=== PATIENT | female | born 1955 | race African-American/Black ===

== ENCOUNTER → 2016-10-16 | Outpatient (CLI) | payer MEDICARE, OTHER ==
[~2016-10-16] MED LIST: ALB5IS NEB; ALBUAER3 IN; ASCO100076 PO; ASPI81CH49; CALC-30; CALC-332 PO; CETI10TA93 PO; ESOM20CA PO; FLUT0.0531; HYDR-3682 OR; IPRA0.035; LIDO5DIS40 BC; MONT10TA23 OR; PRENTAB40 OR; PYRI100T51 PO; VENL150C PO; ZOLP10TA6 PO; [UNRECOGNIZED DRUG - OTHER]; [UNRECOGNIZED DRUG - OTHER] PO
[2016-10-16 09:47] LABS: Basophils # (auto) 0 uL; Basophils % (auto) 0.4 % (0.0-2.0); Eosinophils # (auto) 0.1 uL; Eosinophils % (auto) 1.5 % (0.0-7.0); Hematocrit 41.7 % (36.0-46.0); Hemoglobin 13.1 g/dL (12.2-16.2); Lymphocytes # (auto) 2.3 uL; Mean Corpuscular Hemoglobin 27.4 pg (28.0-32.0); Mean Corpuscular Hgb Conc. 31.3 g/dL (32.0-36.0); Mean Corpuscular Volume 87.3 fL (80.0-100.0); Mean Platelet Volume 10.5 fL (7.4-10.4); Monocytes # (auto) 0.3 uL; Monocytes % (auto) 3.4 % (0.0-12.0); Neutrophils % (auto) 71.7 % (37.0-80.0); Platelet Count (auto) 327 10^3/uL (140-450); Red Cell Distribution Width 16.9 % (11.6-16.0); White Blood Cell 9.8 10^3/uL (4.4-10.8)
[2016-10-16 10:02] LABS: Albumin 3.9 g/dL (3.4-5.0); BUN/Creatinine Ratio 14.3; Bilirubin, Total 0.4 mg/dL (0.2-1.0); Calcium 9.1 mg/dL (8.5-10.1); Potassium 3.8 mmol/L (3.5-5.1); Total Protein 7.5 g/dL (6.4-8.2)
== END | disposition home or self-care (01) ==
LOC: LAB 08:12
DX: I10 Essential (primary) hypertension (principal); M25.50 Pain in unspecified joint; D64.9 Anemia, unspecified; M06.9 Rheumatoid arthritis, unspecified; Z79.899 Other long term (current) drug therapy
CPT/HCPCS: 36415; 80053; 85025; 85652; 86141

== ENCOUNTER → 2017-02-12 | Outpatient (CLI) | payer MEDICARE, OTHER ==
[2017-02-12 12:09] LABS: Basophils # (auto) 0 uL; Basophils % (auto) 0.5 % (0.0-2.0); Eosinophils # (auto) 0.1 uL; Eosinophils % (auto) 0.8 % (0.0-7.0); Hematocrit 43.9 % (36.0-46.0); Hemoglobin 14.1 g/dL (12.2-16.2); Lymphocytes # (auto) 2.1 uL; Lymphocytes % (auto) 30.3 % (10.0-50.0); Mean Corpuscular Hemoglobin 27.9 pg (28.0-32.0); Mean Corpuscular Hgb Conc. 32.1 g/dL (32.0-36.0); Mean Corpuscular Volume 86.8 fL (80.0-100.0); Mean Platelet Volume 10.9 fL (7.4-10.4); Monocytes # (auto) 0.4 uL; Monocytes % (auto) 5.4 % (0.0-12.0); Neutrophils # (auto) 4.4 uL; Platelet Count (auto) 325 10^3/uL (140-450); Red Cell Distribution Width 15.9 % (11.6-16.0); White Blood Cell 6.9 10^3/uL (4.4-10.8)
[2017-02-12 12:42] LABS: BUN/Creatinine Ratio 17.4; Bilirubin, Total 0.2 mg/dL (0.2-1.0); Potassium 3.1 mmol/L (3.5-5.1); Total Protein 7.6 g/dL (6.4-8.2)
== END | disposition home or self-care (01) ==
LOC: LAB 10:34
DX: I10 Essential (primary) hypertension (principal); M06.9 Rheumatoid arthritis, unspecified; M25.50 Pain in unspecified joint; D64.9 Anemia, unspecified; Z79.899 Other long term (current) drug therapy
CPT/HCPCS: 36415; 80053; 80061; 82306; 82607; 83036; 83540; 85025; 85652; 86141

== ENCOUNTER 2017-06-23 13:07 | Observation (INO) | payer MEDICARE, OTHER ==
[~2017-06-23] VITALS: Ht 157.5 cm; Wt 61.2 kg
[2017-06-23 14:30] LABS: Urine RBC None Seen /hpf (0 - 4)
[2017-06-23] MEDS ORDERED: ONDANSETRON HCL 4 MG/2 ML VIAL IV ONE ×3 (14:30→19:30)
[2017-06-23] MEDS ORDERED: MORPHINE SULF INJ 2 MG/ML SYRINGE 1ML IV ONE ×3 (14:30→19:30)
[2017-06-23] MEDS ORDERED: SODIUM CHLORIDE 0.9% 1,000 ML IVB ONE (14:35)
[2017-06-23] MEDS ORDERED: SODIUM CHLORIDE 0.9% 1,000 ML IV ONE (14:45)
[2017-06-23 14:47] LABS: Urine Bilirubin Negative (Negative); Urine Blood Negative /uL (Negative); Urine Color Yellow (Yellow); Urine Glucose Normal (Normal); Urine Ketone Negative (Negative); Urine Mucus FEW (None Seen); Urine Nitrite Negative (Negative); Urine Squamous Epithelial Cell MOD /hpf (<5); Urine Urobilinogen Normal (Negative); Urine pH 8.5 (5.0-8.0)
[2017-06-23 14:51] LABS: Basophils # (auto) 0 uL; Basophils % (auto) 0.2 % (0.0-2.0); CONDITION Y; Eosinophils # (auto) 0.1 uL; Eosinophils % (auto) 0.6 % (0.0-7.0); Hematocrit 38.5 % (36.0-46.0); Hemoglobin 12.6 g/dL (12.2-16.2); Lymphocytes # (auto) 1.4 uL; Lymphocytes % (auto) 15.5 % (10.0-50.0); Mean Corpuscular Hemoglobin 28.8 pg (28.0-32.0); Mean Corpuscular Hgb Conc. 32.7 g/dL (32.0-36.0); Mean Platelet Volume 9.2 fL (6.9-10.8); Monocytes # (auto) 0.4 uL; Monocytes % (auto) 4.7 % (0.0-12.0); Platelet Count (auto) 422 10^3/uL (140-450); Red Cell Distribution Width 15.5 % (11.8-14.3); White Blood Cell 8.9 10^3/uL (4.4-10.8)
[2017-06-23 15:30] LABS: Albumin 3.1 g/dL (3.4-5.0); Amylase 42 U/L (25-115); Anion Gap 9 (5-15); Aspartate Aminotransferase 28 U/L (15-37); BUN/Creatinine Ratio 9.2; Blood Urea Nitrogen 9 mg/dL (7-18); Calcium 8.2 mg/dL (8.5-10.1); Carbon Dioxide 27 mmol/L (21-32); Chloride 108 mmol/L (98-107); GFR African American 74 mL/min; GFR Non-African American 62 mL/min; Glucose 138 mg/dL (74-106); Magnesium 2.7 mg/dL (1.6-2.6); Potassium 4.2 mmol/L (3.5-5.1); Sodium 144 mmol/L (136-145)
[2017-06-23 15:32] LABS: Alkaline Phosphatase 120 U/L (45-117); Bilirubin, Total 0.2 mg/dL (0.2-1.0); Total Protein 6.6 g/dL (6.4-8.2)
[2017-06-23] MEDS ORDERED: PIPERACILLIN-TAZOB 3.375GM 100 ML IV ONE (17:15)
[2017-06-23 22:43] VITALS: BP 104/52
== END 2017-06-23 23:10 | disposition home or self-care (01) | DRG 948 ==
LOC: EDBD 13:07 → ER 13:15 → OVERFLOW 14:36 → ER 23:10
PROVIDERS: ADMIT Family Medicine; ATTEND Family Medicine
DX: R18.8 Other ascites (principal); I31.3 Pericardial effusion (noninflammatory); K76.89 Other specified diseases of liver; R11.2 Nausea with vomiting, unspecified; Z82.3 Family history of stroke; Z82.49 Family history of ischemic heart disease and other diseases of the circulatory system; Z90.13 Acquired absence of bilateral breasts and nipples; Z85.3 Personal history of malignant neoplasm of breast; Z96.653 Presence of artificial knee joint, bilateral; Z98.84 Bariatric surgery status; Z90.710 Acquired absence of both cervix and uterus
CPT/HCPCS: 36415; 71010; 74176; 80053; 81001; 82150; 83690; 83735; 84484; 85025; 93005; 96361; 96365; 96366; 96375; 96376; 99285; G0378; J2270; J2405; J2543; J7030

== ENCOUNTER → 2017-10-16 | Outpatient (CLI) | payer MEDICARE, OTHER ==
[~2017-10-16] MED LIST changes: -LIDO5DIS40 BC; +LIDO5DIS7 BC
[2017-10-16 10:01] LABS: Lymphocytes # (auto) 2.1 uL; Monocytes # (auto) 0.3 uL
[2017-10-16 10:04] LABS: Basophils # (auto) 0 uL; Basophils % (auto) 0.4 % (0.0-2.0); Eosinophils # (auto) 0.2 uL; Lymphocytes % (auto) 33.7 % (10.0-50.0); Mean Corpuscular Hemoglobin 25.4 pg (28.0-32.0); Mean Corpuscular Hgb Conc. 31.5 g/dL (32.0-36.0); Mean Corpuscular Volume 80.4 fL (80.0-100.0); Monocytes % (auto) 5.1 % (0.0-12.0); Neutrophils # (auto) 3.5 uL; Neutrophils % (auto) 56.8 % (37.0-80.0); Platelet Count (auto) 324 10^3/uL (140-450); Red Blood Cells 4.72 10^6/uL (4.0-5.20); White Blood Cell 6.2 10^3/uL (4.4-10.8)
[2017-10-16 10:37] LABS: Alanine Aminotransferase 48 U/L (13-56); Albumin 3.9 g/dL (3.4-5.0); Alkaline Phosphatase 146 U/L (45-117); Anion Gap 8 (5-15); Aspartate Aminotransferase 32 U/L (15-37); BUN/Creatinine Ratio 21.5; Bilirubin, Total < 0.1 mg/dL (0.2-1.0); Blood Urea Nitrogen 17 mg/dL (7-18); CRP High Sensitivity 0.13 mg/dL (< 0.3); Calcium 8.8 mg/dL (8.5-10.1); Carbon Dioxide 23 mmol/L (21-32); Chloride 110 mmol/L (98-107); GFR African American 95 mL/min; GFR Non-African American 79 mL/min; Glucose 76 mg/dL (74-106); Potassium 3.7 mmol/L (3.5-5.1); Sodium 141 mmol/L (136-145); Total Protein 8.2 g/dL (6.4-8.2)
== END | disposition home or self-care (01) ==
LOC: LAB 08:28
DX: I10 Essential (primary) hypertension (principal); M06.9 Rheumatoid arthritis, unspecified; D64.9 Anemia, unspecified; I70.0 Atherosclerosis of aorta; E78.00 Pure hypercholesterolemia, unspecified; Z79.899 Other long term (current) drug therapy
CPT/HCPCS: 36415; 80053; 85025; 85652; 86141

== ENCOUNTER → 2018-04-05 | Outpatient (CLI) | payer MEDICARE, OTHER ==
[2018-04-05 11:05] LABS: Albumin 3.6 g/dL (3.4-5.0); BUN/Creatinine Ratio 14.9; Bilirubin, Total 0.3 mg/dL (0.2-1.0); CRP High Sensitivity 0.05 mg/dL (< 0.3); Potassium 4.2 mmol/L (3.5-5.1); Total Protein 7.5 g/dL (6.4-8.2)
[2018-04-08 12:03] LABS: Basophils # (auto) 0 uL; Eosinophils # (auto) 0.3 uL; Neutrophils # (auto) 3.1 uL
[2018-04-08 12:06] LABS: Basophils % (auto) 0.5 % (0.0-2.0); Eosinophils % (auto) 5.2 % (0.0-7.0); Hematocrit 35.1 % (36.0-46.0); Lymphocytes % (auto) 34.3 % (10.0-50.0); Mean Corpuscular Hemoglobin 23.5 pg (28.0-32.0); Mean Corpuscular Hgb Conc. 31.3 g/dL (32.0-36.0); Mean Corpuscular Volume 75.2 fL (80.0-100.0); Monocytes # (auto) 0.4 uL; Monocytes % (auto) 6.2 % (0.0-12.0); Neutrophils % (auto) 53.8 % (37.0-80.0); Nucleated Red Blood Cells % 0.2 %; Platelet Count (auto) 302 10^3/uL (140-450); Red Blood Cells 4.68 10^6/uL (4.0-5.20); White Blood Cell 5.8 10^3/uL (4.4-10.8)
[2018-04-08 12:28] LABS: Red Cell Distribution Width 25.3 % (11.8-14.3)
== END | disposition home or self-care (01) ==
LOC: LAB 10:23
PROVIDERS: ATTEND Internal Medicine Rheumatology
DX: M06.9 Rheumatoid arthritis, unspecified (principal); I10 Essential (primary) hypertension; E78.00 Pure hypercholesterolemia, unspecified; Z79.899 Other long term (current) drug therapy
CPT/HCPCS: 36415; 80053; 85025; 85652; 86141

== ENCOUNTER 2021-08-29 02:58 | Emergency (ER) | payer MEDICARE, OTHER ==
[~2021-08-29] VITALS: Ht 167.6 cm; Wt 81.6 kg
[~2021-08-29 02:58] MED LIST changes: +LIDO5DIS36 BC; -LIDO5DIS7 BC; -VENL150C PO; +VENL150C3 PO
[2021-08-29 04:02] LABS: Eosinophils # (auto) 0.4 10 ^3/uL (0-0.8); Hemoglobin 11.8 g/dL (12.2-16.2); Mean Corpuscular Hemoglobin 23.4 pg (28.0-32.0); Mean Corpuscular Hgb Conc. 30.5 g/dL (32.0-36.0); Monocytes # (auto) 0.5 10 ^3/uL (0-1.3); Nucleated Red Blood Cells % 0.1 %; White Blood Cell 5.6 10^3/uL (4.4-10.8)
[2021-08-29 04:03] LABS: Basophils # (auto) 0.1 10 ^3/uL (0-0.2); Eosinophils % (auto) 7.4 % (0.0-7.0); Hematocrit 38.6 % (36.0-46.0); Lymphocytes # (auto) 2.3 10 ^3/uL (0.4-5.4); Lymphocytes % (auto) 41.1 % (10.0-50.0); Mean Corpuscular Volume 76.8 fL (80.0-100.0); Monocytes % (auto) 8.2 % (0.0-12.0); Neutrophils # (auto) 2.4 10 ^3/uL (1.6-8.6); Neutrophils % (auto) 42.3 % (37.0-80.0); Red Blood Cells 5.03 10^6/uL (4.0-5.20)
[2021-08-29 04:13] LABS: Red Cell Distribution Width 20.9 % (11.8-14.3)
[2021-08-29 04:22] LABS: Albumin 3.5 g/dL (3.4-5.0); BUN/Creatinine Ratio 13.2; Calcium 8.5 mg/dL (8.5-10.1); Potassium 4.1 mmol/L (3.5-5.1)
[2021-08-29 04:23] LABS: Acetaminophen < 2.0 ug/mL (10-30); Salicylate < 1.7 mg/dL (2.8-20.0)
[2021-08-29 04:24] LABS: Bilirubin, Total 0.2 mg/dL (0.2-1.0); Total Protein 7.5 g/dL (6.4-8.2)
[2021-08-30 07:48] VITALS: BP 144/93
== END 2021-08-30 09:51 | disposition left against medical advice (07) ==
LOC: EDBD 02:58 → ER 02:58
DX: T42.4X2A Poisoning by benzodiazepines, intentional self-harm, initial encounter (principal); F41.9 Anxiety disorder, unspecified; R45.851 Suicidal ideations; F32.9 Major depressive disorder, single episode, unspecified; R94.31 Abnormal electrocardiogram [ECG] [EKG]; Z20.822 Contact with and (suspected) exposure to COVID-19; Z90.49 Acquired absence of other specified parts of digestive tract; Z90.710 Acquired absence of both cervix and uterus; Y92.9 Unspecified place or not applicable
CPT/HCPCS: 36415; 80053; 80320; 80329; 83735; 85025; 87426; 93005

== ENCOUNTER 2023-12-12 09:30 | Day surgery (SDC) | payer MEDICARE, OTHER ==
[2023-12-05 14:45] LABS: Hemoglobin 9.7 g/dL (12.2-16.2); Mean Corpuscular Hemoglobin 21.9 pg (28.0-32.0); Nucleated Red Blood Cells % 0.2 %
[2023-12-05 14:47] LABS: Basophils # (auto) 0.1 10 ^3/uL (0-0.2); Basophils % (auto) 1.5 % (0.0-2.0); Eosinophils # (auto) 0.2 10 ^3/uL (0-0.8); Eosinophils % (auto) 3.5 % (0.0-7.0); Hematocrit 32.1 % (36.0-46.0); Lymphocytes # (auto) 2.3 10 ^3/uL (0.4-5.4); Lymphocytes % (auto) 42.6 % (10.0-50.0); Mean Corpuscular Hgb Conc. 30.2 g/dL (32.0-36.0); Mean Corpuscular Volume 72.3 fL (80.0-100.0); Monocytes # (auto) 0.2 10 ^3/uL (0-1.3); Monocytes % (auto) 3.5 % (0.0-12.0); Neutrophils # (auto) 2.6 10 ^3/uL (1.6-8.6); Neutrophils % (auto) 48.9 % (37.0-80.0); Red Blood Cells 4.44 10^6/uL (4.0-5.20); White Blood Cell 5.4 10^3/uL (4.4-10.8)
[2023-12-05 14:49] LABS: INR 1.09 (0.9-1.15); Partial Thromboplastin Time 26.2 SEC (24.5-34.5); Prothrombin Time 11.4 sec (9.3-11.8)
[2023-12-05 14:53] LABS: Red Cell Distribution Width 23.7 % (11.8-14.3)
[2023-12-05 15:35] LABS: Alanine Aminotransferase 34 U/L (7-40); Albumin 4.5 g/dL (3.2-4.8); Alkaline Phosphatase 111 U/L (46-116); Anion Gap 8 (5-15); Aspartate Aminotransferase 31 U/L (13-40); BUN/Creatinine Ratio 9.3 (10.0-20.0); Blood Urea Nitrogen 8 mg/dL (9-23); Calcium 9.5 mg/dL (8.5-10.1); Carbon Dioxide 28 mmol/L (20-30); Chloride 107 mmol/L (98-107); Glucose 78 mg/dL (74-106); Potassium 3.5 mmol/L (3.5-5.1); Sodium 143 mmol/L (136-145)
[2023-12-05 15:36] LABS: Bilirubin, Total 0.3 mg/dL (0.2-1.0); Total Protein 7.5 g/dL (5.7-8.2)
[~2023-12-12] VITALS: Ht 162.6 cm; Wt 49.0 kg
[~2023-12-12 09:30] MED LIST changes: -ALB5IS NEB; -ALBUAER3 IN; -ASCO100076 PO; -ASPI81CH49; +BUSP1TAB57 PO; -CALC-30; -CALC-332 PO; +CETI10TA2 PO; -CETI10TA93 PO; -ESOM20CA PO; -FLUT0.0531; +GABA-1250 PO; -HYDR-3682 OR; +HYDR-4795 PO; +HYDR-5028 PO; -IPRA0.035; -LIDO5DIS36 BC; +LORA-655 PO; +PANT40T PO; -PRENTAB40 OR; -PYRI100T51 PO; +SUCR1TAB22 OR; +TEMA30CA PO; +TOPI1CAP22 OR; -VENL150C3 PO; -ZOLP10TA6 PO; -[UNRECOGNIZED DRUG - OTHER]; -[UNRECOGNIZED DRUG - OTHER] PO
[2023-12-12] MEDS ORDERED: SODIUM CHLORIDE LOCK 0 ML ONE (09:54)
[2023-12-12] MEDS ORDERED: LIDOCAINE VISCOUS 2% 15ML UD ONE (09:54)
[2023-12-12] MEDS ORDERED: MIDAZOLAM HCL 5 MG/ML-1ML VIAL ONE (09:54)
[2023-12-12] MEDS ORDERED: diphenhdrAMINE HCL 50 MG/1 ML VL ONE (09:55)
[2023-12-12] MEDS ORDERED: fentaNYL CITRATE 100 MCG/2 ML VL ONE (09:55)
[2023-12-12] MEDS ORDERED: PROPOFOL 10 MG/ML 20 ML IV ONE (12:15)
[2023-12-12 12:36] VITALS: TEMP 97.8; O2SAT 100
[2023-12-12] MEDS ORDERED: ONDANSETRON HCL 4 MG/2 ML VIAL IV PRN (12:45)
[2023-12-12 13:00] VITALS: BP 135/79; PULSE 60; RESP 12; O2SAT 100
== END 2023-12-12 13:15 | disposition home or self-care (01) ==
LOC: GI 09:30
PROVIDERS: ATTEND Internal Medicine Gastroenterology
DX: R11.2 Nausea with vomiting, unspecified (principal); K91.89 Other postprocedural complications and disorders of digestive system; K44.9 Diaphragmatic hernia without obstruction or gangrene; K29.50 Unspecified chronic gastritis without bleeding; K31.89 Other diseases of stomach and duodenum; G43.909 Migraine, unspecified, not intractable, without status migrainosus; M19.90 Unspecified osteoarthritis, unspecified site; Z98.84 Bariatric surgery status; Z93.4 Other artificial openings of gastrointestinal tract status; Z90.710 Acquired absence of both cervix and uterus; Z90.13 Acquired absence of bilateral breasts and nipples; Z88.5 Allergy status to narcotic agent; Z88.8 Allergy status to other drugs, medicaments and biological substances; Z79.899 Other long term (current) drug therapy; Z98.890 Other specified postprocedural states
CPT/HCPCS: 36415; 43239; 80053; 85025; 85610; 85730; 88305; 88312; 88342; J2704; J7030; J2250

== ENCOUNTER 2024-05-06 02:57 | Inpatient (IN) | payer MEDICARE, OTHER ==
[2024-05-06] VITALS (7 sets, daily range): BP systolic 100–138; BP diastolic 64–76; PULSE 58–82; RESP 14–20; TEMP 98.1–98.8; O2SAT 93–100
[~2024-05-06] VITALS: Ht 162.6 cm; Wt 57.0 kg
[~2024-05-06 02:57] MED LIST changes: +METH2.5T PO; -MONT10TA23 OR; +MONT10TA23 PO; -SUCR1TAB22 OR; +SUCR1TAB31 OR; -TOPI1CAP22 OR; +TOPI1CAP22 PO
[2024-05-06 04:26] LABS: Hematocrit 29.3 % (36.0-46.0); Hemoglobin 8.3 g/dL (12.2-16.2); Mean Corpuscular Hemoglobin 21.1 pg (28.0-32.0); Mean Corpuscular Hgb Conc. 28.4 g/dL (32.0-36.0)
[2024-05-06 04:30] LABS: Mean Corpuscular Volume 74.4 fL (80.0-100.0); Red Blood Cells 3.94 10^6/uL (4.0-5.20); White Blood Cell 6.2 10^3/uL (4.4-10.8)
[2024-05-06 04:31] LABS: Red Cell Distribution Width 25.4 % (11.8-14.3)
[2024-05-06 04:32] LABS: Basophils % (manual) 0 (0.0-2.0); Blast Cells 0; Eosinophils % (manual) 0 (0-7); Metamyelocytes % 0; Myelocytes % 0; Promyelocytes % 0; Reactive Lymphocytes 0
[2024-05-06 04:41] LABS: Alanine Aminotransferase 24 U/L (7-40); Albumin 4.4 g/dL (3.2-4.8); Alkaline Phosphatase 121 U/L (46-116); Anion Gap 11 (5-15); Aspartate Aminotransferase 20 U/L (13-40); BUN/Creatinine Ratio 8.1 (10.0-20.0); Bilirubin, Total 0.3 mg/dL (0.2-1.0); Blood Urea Nitrogen 6 mg/dL (9-23); Calcium 9.3 mg/dL (8.7-10.4); Carbon Dioxide 17 mmol/L (20-30); Chloride 112 mmol/L (98-107); Glucose 139 mg/dL (74-106); Magnesium 2.2 mg/dL (1.6-2.6); Potassium 3.2 mmol/L (3.5-5.1); Sodium 140 mmol/L (136-145)
[2024-05-06 04:42] LABS: Total Protein 7.4 g/dL (5.7-8.2)
[2024-05-06] MEDS: KETOROLAC TROMETH 30 MG/ML 1ML VIAL IV ONE (05:14)
[2024-05-06] MEDS: SODIUM CHLORIDE 0.9% 1,000 ML IV ONE (05:14)
[2024-05-06] MEDS: OMNIPAQUE 12mg/ml 500ml ORAL SOLUTION PO ONE (05:35)
[2024-05-06] MEDS: ONDANSETRON HCL 4 MG/2 ML VIAL IV ONE (06:12)
[2024-05-06] MEDS: MORPHINE SULFATE 4 MG/ML SYR/VIAL IV ONE (06:13)
[2024-05-06] MEDS: POTASSIUM EFFERVESENT TAB 25 MEQ PO ONE (06:20)
[2024-05-06 06:25] LABS: Band Neutrophils % (manual) 1; Monocytes % (manual) 2 (0-12)
[2024-05-06 06:26] LABS: Anisocytosis Moderate; Hypochromia Moderate; Lymphocytes % (manual) 25 (10.0-50.0); Platelet Estimate Adequate
[2024-05-06 06:27] LABS: Ovalocytes FEW; Target Cell FEW
[2024-05-06] MEDS: diphenhdrAMINE HCL 50 MG/1 ML VL IV ONE (06:27)
[2024-05-06] MEDS: LORazepam 2MG/ML-1ML VIAL IV ONE (07:59)
[2024-05-06 10:48] LABS: Urine Bacteria None Seen /hpf (None Seen)
[2024-05-06] MEDS: IOHEXOL 350 MG/ML 100ML IJ ONE (10:49)
[2024-05-06 11:15] LABS: Urine Amorphous Crystal FEW /hpf (None Seen); Urine Blood Negative /uL (Negative); Urine Clarity Turbid (Clear); Urine Color Light-Yellow (Yellow); Urine Mucus FEW (None Seen); Urine Protein, UAD TRACE (Negative); Urine Specific Gravity 1.018 (1.001-1.035); Urine Urobilinogen Normal (Negative); Urine WBC 3 /hpf (0 - 5)
[2024-05-06] MEDS ORDERED: BUPR450T4 PO (12:10)
[2024-05-06] MEDS: HYDROmorphone HCL 2 MG/ML VL/or syr IV PRN ×2 (13:36→17:18)
[2024-05-06] MEDS: SODIUM CHLOR 0.9% PF (SALINE LOCK) 10ML VIAL/SYR IV SCH (14:38)
[2024-05-06] MEDS ORDERED: CYCL-839 PO (16:41)
[2024-05-06] MEDS ORDERED: ONDA-155 PO (16:41)
[2024-05-06] MEDS ORDERED: LIDO5PAD12 EX (16:41)
[2024-05-06] MEDS ORDERED: DULO60CA41 PO (16:41)
[2024-05-07] VITALS (8 sets, daily range): BP systolic 112–125; BP diastolic 61–84; PULSE 52–77; RESP 16–20; TEMP 97.9–98.6; O2SAT 95–100
[2024-05-07] MEDS: POTASSIUM CHL 20MEQ/100ML 100 ML IV SCH (08:30)
[2024-05-07] MEDS: GASTROGRAFIN 120 ML SOL ONE (09:03)
[2024-05-07 15:25] LABS: Chloride 110 mmol/L (98-107); Potassium 3.1 mmol/L (3.5-5.1); Sodium 143 mmol/L (136-145)
[2024-05-07 15:26] LABS: Anion Gap 12 (5-15); Calcium 9.2 mg/dL (8.7-10.4); Carbon Dioxide 21 mmol/L (20-30); Hemoglobin 8.2 g/dL (12.2-16.2); White Blood Cell 4.9 10^3/uL (4.4-10.8)
[2024-05-07 15:28] LABS: Hematocrit 27.6 % (36.0-46.0); Mean Corpuscular Hgb Conc. 29.6 g/dL (32.0-36.0); Mean Corpuscular Volume 70.9 fL (80.0-100.0); Red Cell Distribution Width 24.3 % (11.8-14.3)
[2024-05-07 15:31] LABS: BUN/Creatinine Ratio 10.1 (10.0-20.0); Band Neutrophils % (manual) 0; Blood Urea Nitrogen 7 mg/dL (9-23); Glucose 77 mg/dL (74-106)
[2024-05-07 15:32] LABS: Basophils % (manual) 0 (0.0-2.0); Blast Cells 0; Magnesium 2.1 mg/dL (1.6-2.6); Metamyelocytes % 0; Myelocytes % 0; Promyelocytes % 0; Reactive Lymphocytes 0
[2024-05-07 16:35] LABS: Anisocytosis Moderate; Eosinophils % (manual) 2 (0-7); Hypochromia Moderate; Lymphocytes % (manual) 37 (10.0-50.0); Monocytes % (manual) 4 (0-12); Platelet Estimate Adequate; Target Cell FEW
[2024-05-07] MEDS: POTASSIUM CHL 20MEQ/100ML 100 ML IV ONE (17:27)
[2024-05-07] MEDS: SOD CHL 0.9%/ KCL 20MEQ 1,000 ML IV SCH (17:27)
[2024-05-07] MEDS: ONDANSETRON HCL 4 MG/2 ML VIAL IV PRN (22:00)
[2024-05-08 01:00] VITALS: BP 131/74; PULSE 63; RESP 18; TEMP 98.2; O2SAT 99
[2024-05-08 05:00] VITALS: BP 114/72; PULSE 80; RESP 18; TEMP 97.8; O2SAT 95
[2024-05-08 07:06] LABS: Basophils # (auto) 0 10 ^3/uL (0-0.2)
[2024-05-08 07:10] LABS: Basophils % (auto) 0.9 % (0.0-2.0); Eosinophils # (auto) 0.1 10 ^3/uL (0-0.8); Hematocrit 29.1 % (36.0-46.0); Hemoglobin 8.1 g/dL (12.2-16.2); Lymphocytes # (auto) 1.8 10 ^3/uL (0.4-5.4); Lymphocytes % (auto) 40.6 % (10.0-50.0); Mean Corpuscular Hemoglobin 20.8 pg (28.0-32.0); Mean Corpuscular Hgb Conc. 27.8 g/dL (32.0-36.0); Mean Corpuscular Volume 74.8 fL (80.0-100.0); Monocytes # (auto) 0.5 10 ^3/uL (0-1.3); Monocytes % (auto) 12.3 % (0.0-12.0); Neutrophils # (auto) 1.9 10 ^3/uL (1.6-8.6); Neutrophils % (auto) 44.2 % (37.0-80.0); Red Blood Cells 3.89 10^6/uL (4.0-5.20); White Blood Cell 4.4 10^3/uL (4.4-10.8)
[2024-05-08 07:11] LABS: Red Cell Distribution Width 24.2 % (11.8-14.3)
[2024-05-08 07:18] LABS: Alanine Aminotransferase 23 U/L (7-40); Albumin 3.8 g/dL (3.2-4.8); Alkaline Phosphatase 109 U/L (46-116); Anion Gap 8 (5-15); Aspartate Aminotransferase 22 U/L (13-40); BUN/Creatinine Ratio 9.1 (10.0-20.0); Bilirubin, Total 0.2 mg/dL (0.2-1.0); Blood Urea Nitrogen 6 mg/dL (9-23); Calcium 8.7 mg/dL (8.7-10.4); Carbon Dioxide 20 mmol/L (20-30); Chloride 114 mmol/L (98-107); Glucose 71 mg/dL (74-106); Potassium 3.9 mmol/L (3.5-5.1); Sodium 142 mmol/L (136-145); Total Protein 6.2 g/dL (5.7-8.2)
[2024-05-08 08:00] VITALS: RESP 18
[2024-05-08 09:00] VITALS: BP 111/65; PULSE 54; RESP 18; TEMP 98; O2SAT 99
[2024-05-08] MEDS ORDERED: DULO30CA PO (09:46)
[2024-05-08] MEDS ORDERED: SUCR1TAB PO (09:50)
[2024-05-08] MEDS ORDERED: OMEP-448 PO (09:50)
[2024-05-08] MEDS ORDERED: SULF500T2 PO (09:50)
[2024-05-08] MEDS ORDERED: FOLI-119 PO (09:50)
[2024-05-08 11:43] VITALS: PULSE 54
[2024-05-08 13:40] VITALS: BP 120/74; PULSE 66; RESP 16; O2SAT 100
== END 2024-05-08 15:00 | disposition home or self-care (01) | DRG 392 ==
LOC: ER 02:57 → OVERFLOW 09:42 → WEST WING 11:24 → TELE-WESTW 05-07 16:54
PROVIDERS: ADMIT Internal Medicine Geriatric Medicine; ATTEND Internal Medicine Geriatric Medicine
DX: K29.70 Gastritis, unspecified, without bleeding (principal); K46.9 Unspecified abdominal hernia without obstruction or gangrene; D64.9 Anemia, unspecified; E87.6 Hypokalemia; F32.A Depression, unspecified; Z96.653 Presence of artificial knee joint, bilateral; Z85.3 Personal history of malignant neoplasm of breast; Z88.5 Allergy status to narcotic agent; Z88.8 Allergy status to other drugs, medicaments and biological substances; Z98.84 Bariatric surgery status; Z90.710 Acquired absence of both cervix and uterus; Z90.49 Acquired absence of other specified parts of digestive tract; Z90.13 Acquired absence of bilateral breasts and nipples; Z80.3 Family history of malignant neoplasm of breast; Z82.61 Family history of arthritis
CPT/HCPCS: 36415; 74175; 74176; 74250; 80048; 80053; 81001; 83605; 83735; 85007; 85025; 85027; 93005; 96374; 96375; G0378; J1885; J2405; J3480

== ENCOUNTER 2024-05-09 21:33 | Inpatient (IN) | payer MEDICARE, OTHER ==
[~2024-05-09] VITALS: Ht 162.6 cm; Wt 51.9 kg
[~2024-05-09 21:33] MED LIST changes: +BUPR450T4 PO; +CYCL-839 PO; +DULO30CA PO; +FOLI-119 PO; +LIDO5PAD12 EX; -LORA-655 PO; +OMEP-448 PO; +ONDA-155 PO; -PANT40T PO; +SUCR1TAB PO; -SUCR1TAB31 OR; +SULF500T2 PO
[2024-05-10 00:50] LABS: Basophils # (auto) 0 10 ^3/uL (0-0.2); Eosinophils # (auto) 0 10 ^3/uL (0-0.8); Hematocrit 29.1 % (36.0-46.0); Mean Corpuscular Hemoglobin 21.4 pg (28.0-32.0); Mean Corpuscular Hgb Conc. 29.7 g/dL (32.0-36.0); Monocytes # (auto) 0.6 10 ^3/uL (0-1.3); White Blood Cell 3.8 10^3/uL (4.4-10.8)
[2024-05-10 00:52] LABS: Basophils % (auto) 0.4 % (0.0-2.0); Eosinophils % (auto) 0.2 % (0.0-7.0); Hemoglobin 8.6 g/dL (12.2-16.2); Lymphocytes % (auto) 25.9 % (10.0-50.0); Monocytes % (auto) 15.3 % (0.0-12.0); Neutrophils # (auto) 2.2 10 ^3/uL (1.6-8.6); Neutrophils % (auto) 58.2 % (37.0-80.0); Nucleated Red Blood Cells % 0.2 %; Red Blood Cells 4.04 10^6/uL (4.0-5.20); Red Cell Distribution Width 23.9 % (11.8-14.3)
[2024-05-10 01:02] LABS: INR 1.07 (0.9-1.15); Partial Thromboplastin Time 27.1 SEC (24.5-34.5); Prothrombin Time 11.3 sec (9.3-11.8)
[2024-05-10 01:04] LABS: Alanine Aminotransferase 28 U/L (7-40); Alkaline Phosphatase 124 U/L (46-116); Anion Gap 7 (5-15); Aspartate Aminotransferase 22 U/L (13-40); Calcium 9.2 mg/dL (8.7-10.4); Carbon Dioxide 24 mmol/L (20-30); Chloride 108 mmol/L (98-107); Glucose 94 mg/dL (74-106); Lipase 36 U/L (12-53); Sodium 139 mmol/L (136-145)
[2024-05-10 01:05] LABS: Albumin 4.3 g/dL (3.2-4.8); Bilirubin, Total 0.2 mg/dL (0.2-1.0); Total Protein 7.6 g/dL (5.7-8.2)
[2024-05-10 01:11] LABS: BUN/Creatinine Ratio 6.5 (10.0-20.0); Blood Urea Nitrogen < 5 mg/dL (9-23)
[2024-05-10] MEDS: KETOROLAC TROMETH 60MG/2ML VIAL IM ONE (02:36)
[2024-05-10] MEDS ORDERED: ACETAMINOPHEN 325 MG TAB PO PRN (05:30)
[2024-05-10] MEDS ORDERED: DOCUSATE SOD 100 MG CAP PO PRN (05:30)
[2024-05-10] MEDS ORDERED: POTASSIUM CHL 20MEQ/100ML 100 ML IV SCH ×2 (05:30→12:00)
[2024-05-10] MEDS ORDERED: D5W/SOD CHLO 0.9% 1,000 ML IV SCH (05:30)
[2024-05-10] MEDS: POTASSIUM CHL 20 Meq TABLET PO ONE ×2 (06:02→13:10)
[2024-05-10] MEDS ORDERED: NITROGLYCERIN 0.4 MG SL TAB SL PRN (06:15)
[2024-05-10 06:47] VITALS: PULSE 78; RESP 18; O2SAT 99
[2024-05-10 07:04] LABS: Alanine Aminotransferase 25 U/L (7-40); Albumin 4.1 g/dL (3.2-4.8); Alkaline Phosphatase 115 U/L (46-116); Anion Gap 8 (5-15); Aspartate Aminotransferase 21 U/L (13-40); Bilirubin, Total 0.2 mg/dL (0.2-1.0); Calcium 9.1 mg/dL (8.7-10.4); Carbon Dioxide 25 mmol/L (20-30); Chloride 107 mmol/L (98-107); Glucose 90 mg/dL (74-106); Potassium 3.1 mmol/L (3.5-5.1); Sodium 140 mmol/L (136-145); Total Protein 6.7 g/dL (5.7-8.2)
[2024-05-10 07:10] LABS: BUN/Creatinine Ratio 5.1 (10.0-20.0); Blood Urea Nitrogen < 5 mg/dL (9-23)
[2024-05-10 07:22] VITALS: PULSE 63; RESP 16; O2SAT 100
[2024-05-10] MEDS: D5W/SOD CHLO 0.9% 1,000 ML IV SCH (08:05)
[2024-05-10 08:23] LABS: Hematocrit 26.9 % (36.0-46.0); Mean Corpuscular Hemoglobin 21.4 pg (28.0-32.0); Mean Corpuscular Hgb Conc. 29.9 g/dL (32.0-36.0); Mean Corpuscular Volume 71.7 fL (80.0-100.0); Red Blood Cells 3.75 10^6/uL (4.0-5.20); White Blood Cell 2.5 10^3/uL (4.4-10.8)
[2024-05-10 08:25] LABS: Basophils % (manual) 0 (0.0-2.0); Blast Cells 0; Eosinophils % (manual) 0 (0-7); Metamyelocytes % 0; Myelocytes % 0; Promyelocytes % 0; Reactive Lymphocytes 0
[2024-05-10] MEDS: HYDROcodone-ACET 5/325MG TAB PO PRN (08:56)
[2024-05-10 10:36] LABS: Anisocytosis Slight; Band Neutrophils % (manual) 1; Lymphocytes % (manual) 26 (10.0-50.0); Monocytes % (manual) 13 (0-12); Platelet Estimate Adequate
[2024-05-10 10:37] LABS: Hypochromia Slight; Ovalocytes FEW
[2024-05-10] MEDS: MULTIPLE VITAMIN TAB PO SCH (11:15)
[2024-05-10] MEDS: ONDANSETRON HCL 4 MG/2 ML VIAL IV PRN (11:15)
[2024-05-10] MEDS: FAMOTIDINE (10MG/ML) 2ML VL IV SCH (11:15)
[2024-05-10] MEDS ORDERED: [UNRECOGNIZED DRUG - CODE] PO (11:24)
[2024-05-10 17:08] VITALS: BP 128/86; PULSE 70; RESP 16; TEMP 98; O2SAT 100
[2024-05-10 18:35] VITALS: BP 128/86; PULSE 70; RESP 16; TEMP 97.8; O2SAT 100
[2024-05-10 20:00] VITALS: PULSE 56; RESP 20; O2SAT 99
[2024-05-10 21:00] VITALS: BP 114/66; PULSE 56; RESP 20; TEMP 98.9; O2SAT 99
[2024-05-10] MEDS: TEMAZEPAM 15 MG CAP PO SCH (21:57)
[2024-05-11] VITALS (7 sets, daily range): BP systolic 104–122; BP diastolic 66–75; PULSE 56–67; RESP 17–20; TEMP 98.2–99.5; O2SAT 98–100
[2024-05-11] MEDS: HYDROcodone-ACET 5/325MG TAB PO ONE (02:34)
[2024-05-11 07:12] LABS: Basophils # (auto) 0 10 ^3/uL (0-0.2); Eosinophils # (auto) 0 10 ^3/uL (0-0.8); Neutrophils # (auto) 0.5 10 ^3/uL (1.6-8.6); White Blood Cell 2.1 10^3/uL (4.4-10.8)
[2024-05-11 07:17] LABS: Basophils % (auto) 1.5 % (0.0-2.0); Eosinophils % (auto) 0.6 % (0.0-7.0); Hematocrit 24.5 % (36.0-46.0); Hemoglobin 7.2 g/dL (12.2-16.2); Lymphocytes % (auto) 46.7 % (10.0-50.0); Mean Corpuscular Hemoglobin 21.5 pg (28.0-32.0); Mean Corpuscular Hgb Conc. 29.5 g/dL (32.0-36.0); Mean Corpuscular Volume 72.9 fL (80.0-100.0); Monocytes # (auto) 0.6 10 ^3/uL (0-1.3); Neutrophils % (auto) 23.4 % (37.0-80.0); Nucleated Red Blood Cells % 0.2 %; Red Blood Cells 3.36 10^6/uL (4.0-5.20)
[2024-05-11 07:21] LABS: Monocytes % (auto) 27.8 % (0.0-12.0); Red Cell Distribution Width 23.9 % (11.8-14.3)
[2024-05-11 07:38] LABS: Alanine Aminotransferase 20 U/L (7-40); Glucose 327 mg/dL (74-106)
[2024-05-11 07:39] LABS: Albumin 3.3 g/dL (3.2-4.8); Aspartate Aminotransferase 14 U/L (13-40); Bilirubin, Total 0.2 mg/dL (0.2-1.0); Total Protein 5.4 g/dL (5.7-8.2)
[2024-05-11 07:42] LABS: Chloride 113 mmol/L (98-107); Potassium 3.3 mmol/L (3.5-5.1); Sodium 142 mmol/L (136-145)
[2024-05-11 07:51] LABS: Alkaline Phosphatase 95 U/L (46-116)
[2024-05-11 08:29] LABS: Anion Gap 7 (5-15); Carbon Dioxide 22 mmol/L (20-30)
[2024-05-11 08:30] LABS: BUN/Creatinine Ratio 6.3 (10.0-20.0); Blood Urea Nitrogen < 5 mg/dL (9-23)
[2024-05-11] MEDS: DULoxetine HCL 30 MG CAP PO SCH (10:20)
[2024-05-11] MEDS: busPIRone HCL 10 MG TAB PO SCH (10:20)
[2024-05-11] MEDS: LORazepam 0.5 MG TAB PO PRN (14:14)
[2024-05-11] MEDS: METOCLOPRAMIDE HCL 5MG/ml INJ 2ml VIAL IV ONE (20:44)
[2024-05-11] MEDS: SUCRALFATE 1 GM/10 ML ORAL SUSP GT SCH (21:09)
[2024-05-12 01:00] VITALS: BP 106/68; PULSE 58; RESP 17; TEMP 98.8; O2SAT 100
[2024-05-12 05:00] VITALS: BP 105/74; PULSE 63; RESP 17; TEMP 99; O2SAT 98
[2024-05-12 08:20] VITALS: PULSE 71; RESP 17; O2SAT 97
[2024-05-12 09:00] VITALS: BP 125/80; PULSE 71; RESP 17; TEMP 98.4; O2SAT 97
[2024-05-12] MEDS ORDERED: PANT40T PO (11:24)
[2024-05-12] MEDS ORDERED: HYDR-4902 PO (11:24)
[2024-05-12] MEDS ORDERED: SUCR1TAB31 PO (11:24)
[2024-05-12 12:43] VITALS: BP 125/80; PULSE 71; RESP 17; TEMP 98.4; O2SAT 97
== END 2024-05-12 15:00 | disposition home or self-care (01) | DRG 384 ==
LOC: ER 21:33 → OVERFLOW 05-10 06:09 → EAST 05-10 06:09
PROVIDERS: ADMIT Nurse Practitioner Family; ATTEND Family Medicine
DX: K25.9 Gastric ulcer, unspecified as acute or chronic, without hemorrhage or perforation (principal); D64.9 Anemia, unspecified; I10 Essential (primary) hypertension; E87.6 Hypokalemia; F32.A Depression, unspecified; M06.9 Rheumatoid arthritis, unspecified; Z90.13 Acquired absence of bilateral breasts and nipples; Z85.3 Personal history of malignant neoplasm of breast; Z90.49 Acquired absence of other specified parts of digestive tract; Z88.5 Allergy status to narcotic agent; Z88.8 Allergy status to other drugs, medicaments and biological substances; Z79.899 Other long term (current) drug therapy; Z90.710 Acquired absence of both cervix and uterus; Z98.84 Bariatric surgery status
CPT/HCPCS: 36415; 74176; 80053; 83690; 85007; 85025; 85027; 85610; 85730; 86850; 86900; 86901; 87081; 96372; G0378; J1885; J2405; J3490; J7042

== ENCOUNTER 2024-05-17 10:30 | Inpatient (IN) | payer MEDICARE, OTHER ==
[~2024-05-17] VITALS: Ht 162.6 cm; Wt 59.0 kg
[~2024-05-17 10:30] MED LIST changes: +HYDR-4902 PO; +PANT40T PO; +SUCR1TAB31 PO; +[UNRECOGNIZED DRUG - CODE] PO
[2024-05-17] MEDS: HYDROcodone-ACET 10/325MG TAB PO ONE (11:00)
[2024-05-17 11:49] LABS: Anion Gap 6 (5-15); Carbon Dioxide 28 mmol/L (20-30); Chloride 108 mmol/L (98-107); Potassium 2.9 mmol/L (3.5-5.1); Sodium 142 mmol/L (136-145)
[2024-05-17 11:50] LABS: Calcium 10.2 mg/dL (8.7-10.4)
[2024-05-17 11:55] LABS: BUN/Creatinine Ratio 14.1 (10.0-20.0); Blood Urea Nitrogen 12 mg/dL (9-23); Glucose 74 mg/dL (74-106)
[2024-05-17 11:59] LABS: Mean Corpuscular Hemoglobin 20.9 pg (28.0-32.0); White Blood Cell 2.8 10^3/uL (4.4-10.8)
[2024-05-17 12:01] LABS: Hematocrit 34.3 % (36.0-46.0); Hemoglobin 10.1 g/dL (12.2-16.2); Mean Corpuscular Hgb Conc. 29.3 g/dL (32.0-36.0); Mean Corpuscular Volume 71.2 fL (80.0-100.0); Red Blood Cells 4.82 10^6/uL (4.0-5.20)
[2024-05-17 12:02] LABS: Red Cell Distribution Width 23.4 % (11.8-14.3)
[2024-05-17 12:03] LABS: Basophils % (manual) 0 (0.0-2.0); Blast Cells 0; Metamyelocytes % 0; Myelocytes % 0; Promyelocytes % 0
[2024-05-17 12:31] LABS: Band Neutrophils % (manual) 1; Eosinophils % (manual) 2 (0-7); Lymphocytes % (manual) 54 (10.0-50.0); Monocytes % (manual) 13 (0-12)
[2024-05-17 12:32] LABS: Reactive Lymphocytes 2
[2024-05-17 12:33] LABS: Anisocytosis Moderate; Hypochromia Moderate; Ovalocytes FEW
[2024-05-17 12:34] LABS: Platelet Estimate Adequate
[2024-05-17] MEDS: POTASSIUM EFFERVESENT TAB 25 MEQ PO ONE (13:09)
[2024-05-17 13:34] VITALS: PULSE 77; RESP 15; O2SAT 100
[2024-05-17] MEDS ORDERED: NITROGLYCERIN 0.4 MG SL TAB SL PRN (13:45)
[2024-05-17] MEDS ORDERED: HYDROcodone-ACET 5/325MG TAB PO PRN (13:45)
[2024-05-17] MEDS ORDERED: MORPHINE SULFATE INJ 2 MG/ml SYRG IV PRN (13:45)
[2024-05-17] MEDS ORDERED: ACETAMINOPHEN 325 MG TAB PO PRN (13:45)
[2024-05-17] MEDS ORDERED: TEMAZEPAM 15 MG CAP PO PRN (14:00)
[2024-05-17] MEDS: SUCRALFATE 1 GM TAB PO SCH (14:36)
[2024-05-17] MEDS: CYCLOBENZAPRINE HCL 10 MG TAB PO SCH (14:36)
[2024-05-17] MEDS: HYDROcodone-ACET 7.5/325MG TAB PO SCH (14:37)
[2024-05-17] MEDS: MORPHINE SULFATE INJ 2 MG/ml SYRG IV PRN (16:42)
[2024-05-17] MEDS: ONDANSETRON HCL 4 MG/2 ML VIAL IV PRN (16:43)
[2024-05-17 17:54] VITALS: BP 105/62; PULSE 56; RESP 15; TEMP 98.1; O2SAT 100
[2024-05-17] MEDS ORDERED: PATIENTS OWN MEDICATION (Temazepam 30 MG) PO SCH (18:00)
[2024-05-17] MEDS: diphenhdrAMINE HCL 50 MG/1 ML VL IV ONE (18:29)
[2024-05-17] MEDS: GABAPENTIN 300 MG CAP PO SCH (18:39)
[2024-05-17] MEDS: diphenhdrAMINE HCL 50 MG/1 ML VL IV PRN (19:51)
[2024-05-17 20:00] VITALS: PULSE 69
[2024-05-17 21:00] VITALS: BP 112/69; PULSE 66; RESP 19; TEMP 98; O2SAT 100
[2024-05-17] MEDS: TEMAZEPAM 15 MG CAP PO SCH (21:15)
[2024-05-17] MEDS: sulfaSALAzine 500 MG TAB PO SCH (21:15)
[2024-05-17] MEDS ORDERED: PANTOPRAZOLE 40 MG TAB PO SCH (22:00)
[2024-05-18 05:00] VITALS: BP 98/58; PULSE 62; RESP 20; O2SAT 100
[2024-05-18 07:24] LABS: Urine Bacteria FEW /hpf (None Seen); Urine Blood Negative /uL (Negative); Urine Clarity Clear (Clear); Urine Color Yellow (Yellow); Urine Mucus FEW (None Seen); Urine Protein, UAD 1+ (Negative); Urine Specific Gravity 1.037 (1.001-1.035); Urine Urobilinogen Normal (Negative); Urine WBC 5 /hpf (0 - 5); Urine pH 6.5 (5.0-9.0)
[2024-05-18 07:25] VITALS: PULSE 54
[2024-05-18 09:00] VITALS: BP 93/66; PULSE 67; RESP 15; TEMP 96.6; O2SAT 100
[2024-05-18] MEDS ORDERED: PATIENTS OWN MEDICATION (Omeprazole (Omeprazole Dr) 1 CAP) PO SCH (10:00)
[2024-05-18] MEDS ORDERED: PATIENTS OWN MEDICATION (Folic Acid 1 TAB) PO SCH (10:00)
[2024-05-18] MEDS: BUPROPION HYDROCHLORIDE PO SCH (10:00)
[2024-05-18] MEDS ORDERED: ESOMEPRAZOLE MAGNESIUM 10 MG PO SCH (10:00)
[2024-05-18] MEDS: CETIRIZINE HCL 10 MG PO SCH (10:00)
[2024-05-18] MEDS: FOLIC ACID 1 MG TAB PO SCH (10:37)
[2024-05-18] MEDS: DULoxetine HCL 30 MG CAP PO SCH (10:39)
[2024-05-18] MEDS: DOCUSATE SOD 100 MG CAP PO SCH (10:39)
[2024-05-18] MEDS: PANTOPRAZOLE 40 MG TAB PO SCH (10:41)
[2024-05-18] MEDS: MONTELUKAST SODIUM 10 MG TAB PO SCH (10:41)
[2024-05-18] MEDS: LIDOCAINE 5% TOPICAL PATCH TOP SCH (10:42)
[2024-05-18] MEDS: ENOXAPARIN SOD 40 MG/0.4 ML SYRINGE SC SCH (10:42)
[2024-05-18 13:00] VITALS: BP 120/83; PULSE 72; RESP 16; TEMP 98.9; O2SAT 99
[2024-05-18] MEDS: hydrOXYzine HCL 10 MG TAB PO SCH (13:12)
[2024-05-18 13:46] LABS: Basophils # (auto) 0 10 ^3/uL (0-0.2); Monocytes # (auto) 0.3 10 ^3/uL (0-1.3); White Blood Cell 3.8 10^3/uL (4.4-10.8)
[2024-05-18 13:49] LABS: Basophils % (auto) 0.5 % (0.0-2.0); Eosinophils # (auto) 0.2 10 ^3/uL (0-0.8); Hematocrit 32.7 % (36.0-46.0); Hemoglobin 9.6 g/dL (12.2-16.2); Lymphocytes # (auto) 1.6 10 ^3/uL (0.4-5.4); Lymphocytes % (auto) 41.5 % (10.0-50.0); Mean Corpuscular Hemoglobin 21.5 pg (28.0-32.0); Mean Corpuscular Hgb Conc. 29.4 g/dL (32.0-36.0); Mean Corpuscular Volume 73.1 fL (80.0-100.0); Monocytes % (auto) 7.6 % (0.0-12.0); Neutrophils # (auto) 1.8 10 ^3/uL (1.6-8.6); Neutrophils % (auto) 46.4 % (37.0-80.0); Nucleated Red Blood Cells % 0.2 %; Red Blood Cells 4.48 10^6/uL (4.0-5.20)
[2024-05-18 14:13] LABS: Alanine Aminotransferase 43 U/L (7-40); Alkaline Phosphatase 117 U/L (46-116); Anion Gap 5 (5-15); Aspartate Aminotransferase 34 U/L (13-40); BUN/Creatinine Ratio 15.3 (10.0-20.0); Bilirubin, Total < 0.2 mg/dL (0.2-1.0); Blood Urea Nitrogen 11 mg/dL (9-23); Calcium 9.5 mg/dL (8.7-10.4); Carbon Dioxide 31 mmol/L (20-30); Chloride 105 mmol/L (98-107); Glucose 90 mg/dL (74-106); Potassium 3.4 mmol/L (3.5-5.1); Sodium 141 mmol/L (136-145); Total Protein 6.6 g/dL (5.7-8.2)
[2024-05-18] MEDS: cefTRIAXone 1GM/50ML D5W 50 ML IV STA (15:38)
[2024-05-18 16:51] VITALS: BP 97/60; PULSE 71; RESP 16; TEMP 98.7; O2SAT 95
[2024-05-18] MEDS: SODIUM CHLORIDE 0.9% 500 ML IV STA (20:55)
[2024-05-18] MEDS: SODIUM CHLORIDE 0.9% 1,000 ML IV SCH (20:55)
[2024-05-18 21:00] VITALS: BP 88/55; PULSE 61; RESP 20; TEMP 98.1; O2SAT 98
[2024-05-18] MEDS: POTASSIUM CHL 20 Meq TABLET PO STA (21:00)
[2024-05-19] VITALS (8 sets, daily range): BP systolic 85–129; BP diastolic 54–77; PULSE 60–76; RESP 16–20; TEMP 97.5–98.1; O2SAT 96–100
[2024-05-19 05:41] LABS: Basophils # (auto) 0 10 ^3/uL (0-0.2); Basophils % (auto) 0.7 % (0.0-2.0); Eosinophils # (auto) 0.2 10 ^3/uL (0-0.8); Eosinophils % (auto) 5.8 % (0.0-7.0); Hematocrit 27.7 % (36.0-46.0); Hemoglobin 8.2 g/dL (12.2-16.2); Lymphocytes # (auto) 1.5 10 ^3/uL (0.4-5.4); Lymphocytes % (auto) 45.2 % (10.0-50.0); Mean Corpuscular Hemoglobin 21.3 pg (28.0-32.0); Mean Corpuscular Hgb Conc. 29.6 g/dL (32.0-36.0); Mean Corpuscular Volume 71.7 fL (80.0-100.0); Monocytes # (auto) 0.3 10 ^3/uL (0-1.3); Monocytes % (auto) 9.4 % (0.0-12.0); Neutrophils # (auto) 1.3 10 ^3/uL (1.6-8.6); Neutrophils % (auto) 38.9 % (37.0-80.0); Red Blood Cells 3.87 10^6/uL (4.0-5.20); White Blood Cell 3.3 10^3/uL (4.4-10.8)
[2024-05-19 05:43] LABS: Red Cell Distribution Width 22.2 % (11.8-14.3)
[2024-05-19 05:52] LABS: Alanine Aminotransferase 35 U/L (7-40); Albumin 3.4 g/dL (3.2-4.8); Alkaline Phosphatase 100 U/L (46-116); Anion Gap 6 (5-15); Aspartate Aminotransferase 25 U/L (13-40); BUN/Creatinine Ratio 13.4 (10.0-20.0); Blood Urea Nitrogen 9 mg/dL (9-23); Calcium 8.6 mg/dL (8.7-10.4); Carbon Dioxide 29 mmol/L (20-30); Chloride 109 mmol/L (98-107); Glucose 79 mg/dL (74-106); Potassium 4.4 mmol/L (3.5-5.1); Sodium 144 mmol/L (136-145)
[2024-05-19 05:53] LABS: Bilirubin, Total < 0.2 mg/dL (0.2-1.0); Total Protein 5.8 g/dL (5.7-8.2)
[2024-05-19 05:54] LABS: % Iron Saturation 5.2 % (15-50)
[2024-05-19] MEDS: OMNIPAQUE 12mg/ml 500ml ORAL SOLUTION PO ONE (06:12)
[2024-05-19] MEDS: IOHEXOL 300 MG/ML 100ML BOTTLE IJ ONE (06:12)
[2024-05-19] MEDS ORDERED: METHOTREXATE 2.5 MG TAB PO SCH ×2 (07:00→10:00)
[2024-05-19] MEDS ORDERED: IOHEXOL 300 MG/ML 100ML BOTTLE IJ ONE (12:58)
[2024-05-19] MEDS: LACTULOSE 20Gm/30ML SOLN PO PRN (13:41)
[2024-05-19] MEDS: cefTRIAXone 1GM/50ML D5W 50 ML IV SCH (13:42)
[2024-05-19] MEDS: METOCLOPRAMIDE HCL 5MG/ml INJ 2ml VIAL IV ONE (17:15)
[2024-05-19] MEDS ORDERED: LACTULOSE 20Gm/30ML SOLN PO PRN (17:15)
[2024-05-19] MEDS: LACTULOSE 20Gm/30ML SOLN PO STA (17:47)
[2024-05-20 01:00] VITALS: BP 100/70; PULSE 71; RESP 17; TEMP 97.5; O2SAT 93
[2024-05-20 05:00] VITALS: BP 122/80; PULSE 68; RESP 17; TEMP 98.2; O2SAT 100
[2024-05-20 05:14] LABS: Basophils # (auto) 0 10 ^3/uL (0-0.2); Basophils % (auto) 0.6 % (0.0-2.0); Eosinophils # (auto) 0.1 10 ^3/uL (0-0.8); Hematocrit 27.2 % (36.0-46.0); Hemoglobin 7.9 g/dL (12.2-16.2); Lymphocytes # (auto) 1.3 10 ^3/uL (0.4-5.4); Lymphocytes % (auto) 33.1 % (10.0-50.0); Mean Corpuscular Hemoglobin 20.9 pg (28.0-32.0); Mean Corpuscular Hgb Conc. 29.2 g/dL (32.0-36.0); Mean Corpuscular Volume 71.7 fL (80.0-100.0); Monocytes # (auto) 0.2 10 ^3/uL (0-1.3); Monocytes % (auto) 5.9 % (0.0-12.0); Neutrophils # (auto) 2.3 10 ^3/uL (1.6-8.6); Neutrophils % (auto) 58.4 % (37.0-80.0); Nucleated Red Blood Cells % 0.2 %; Red Blood Cells 3.79 10^6/uL (4.0-5.20); White Blood Cell 3.9 10^3/uL (4.4-10.8)
[2024-05-20 05:27] LABS: Anion Gap 5 (5-15); Carbon Dioxide 26 mmol/L (20-30); Chloride 112 mmol/L (98-107); Potassium 4.1 mmol/L (3.5-5.1); Sodium 143 mmol/L (136-145)
[2024-05-20 05:28] LABS: Calcium 8.3 mg/dL (8.7-10.4)
[2024-05-20 05:33] LABS: BUN/Creatinine Ratio 11.4 (10.0-20.0); Blood Urea Nitrogen 8 mg/dL (9-23); Glucose 86 mg/dL (74-106)
[2024-05-20 08:00] VITALS: PULSE 77
[2024-05-20 09:00] VITALS: BP 103/72; PULSE 80; RESP 21; TEMP 97.6; O2SAT 97
[2024-05-20] MEDS: SODIUM FERR GLUC 62.5MG/5ML 110 ML IV SCH (12:00)
[2024-05-20 15:04] VITALS: TEMP 36.4
[2024-05-20] MEDS ORDERED: CEPH250C PO (16:04)
== END 2024-05-20 17:20 | disposition home or self-care (01) | DRG 872 ==
LOC: ER 10:30 → TELE 13:33 → TELE-WESTW 17:20
PROVIDERS: ADMIT Internal Medicine Pulmonary Disease; ATTEND Internal Medicine Pulmonary Disease
PROC: 05HA33Z Insertion of Infusion Device into Left Brachial Vein, Percutaneous Approach (ICD-10-PCS; principal; 2024-05-19)
PROC: B54NZZA Ultrasonography of Left Upper Extremity Veins, Guidance (ICD-10-PCS; 2024-05-19)
DX: A41.9 Sepsis, unspecified organism (principal); N30.00 Acute cystitis without hematuria; I31.39 Other pericardial effusion (noninflammatory); G89.4 Chronic pain syndrome; E87.6 Hypokalemia; J45.909 Unspecified asthma, uncomplicated; F32.A Depression, unspecified; M06.9 Rheumatoid arthritis, unspecified; K29.70 Gastritis, unspecified, without bleeding; E83.51 Hypocalcemia; K52.9 Noninfective gastroenteritis and colitis, unspecified; D64.9 Anemia, unspecified; K59.00 Constipation, unspecified; K76.89 Other specified diseases of liver; T45.1X5A Adverse effect of antineoplastic and immunosuppressive drugs, initial encounter; Z88.5 Allergy status to narcotic agent; Z88.8 Allergy status to other drugs, medicaments and biological substances; Z87.11 Personal history of peptic ulcer disease; Z90.710 Acquired absence of both cervix and uterus; Z90.49 Acquired absence of other specified parts of digestive tract; Z85.3 Personal history of malignant neoplasm of breast; Z98.84 Bariatric surgery status; Z90.13 Acquired absence of bilateral breasts and nipples; Y92.89 Other specified places as the place of occurrence of the external cause
CPT/HCPCS: 36415; 74177; 76705; 80048; 80053; 81001; 82270; 82728; 83540; 83550; 83690; 83735; 85007; 85025; 85027; 87081; 93005; G0378; J2405

== ENCOUNTER → 2024-10-22 | Outpatient (CLI) | payer MEDICARE, OTHER ==
[~2024-10-22] MED LIST changes: +CEPH250C PO
[2024-10-22 11:51] LABS: Urine Bacteria None Seen /hpf (None Seen)
[2024-10-22 12:07] LABS: Basophils # (auto) 0 10 ^3/uL (0-0.2); Eosinophils # (auto) 0.1 10 ^3/uL (0-0.8); Eosinophils % (auto) 1.8 % (0.0-7.0); Hemoglobin 9.8 g/dL (12.2-16.2); Mean Corpuscular Volume 77.2 fL (80.0-100.0); Monocytes # (auto) 0.4 10 ^3/uL (0-1.3); Neutrophils # (auto) 3.4 10 ^3/uL (1.6-8.6)
[2024-10-22 12:10] LABS: Basophils % (auto) 0.5 % (0.0-2.0); Hematocrit 31.8 % (36.0-46.0); Lymphocytes # (auto) 2.2 10 ^3/uL (0.4-5.4); Lymphocytes % (auto) 36.4 % (10.0-50.0); Mean Corpuscular Hemoglobin 23.8 pg (28.0-32.0); Mean Corpuscular Hgb Conc. 30.8 g/dL (32.0-36.0); Monocytes % (auto) 5.8 % (0.0-12.0); Neutrophils % (auto) 55.5 % (37.0-80.0); Platelet Count (auto) 259 10^3/uL (140-450); Red Blood Cells 4.12 10^6/uL (4.0-5.20); White Blood Cell 6.2 10^3/uL (4.4-10.8)
[2024-10-22 12:18] LABS: Urine Blood Negative /uL (Negative); Urine Clarity Clear (Clear); Urine Color Yellow (Yellow); Urine Hyaline Cast FEW /lpf (0 - 2); Urine Mucus FEW (None Seen); Urine Protein, UAD 1+ (Negative); Urine Squamous Epithelial Cell FEW /hpf (<5); Urine Urobilinogen Normal (Negative); Urine WBC <1 /hpf (0 - 5)
[2024-10-22 12:20] LABS: INR 1.08 (0.9-1.15); Prothrombin Time 11.4 sec (9.3-11.8)
[2024-10-22 12:40] LABS: Erythrocyte Sedimentation Rate 4 mm/hr (0-20)
[2024-10-22 12:41] LABS: Albumin 4.1 g/dL (3.2-4.8); Anion Gap 7 (5-15); Aspartate Aminotransferase 33 U/L (13-40); BUN/Creatinine Ratio 12.8 (10.0-20.0); Blood Urea Nitrogen 10 mg/dL (9-23); Calcium 9.2 mg/dL (8.7-10.4); Carbon Dioxide 27 mmol/L (20-31); Glucose 79 mg/dL (74-106); Sodium 143 mmol/L (136-145); Total Protein 6.6 g/dL (5.7-8.2)
[2024-10-22 12:42] LABS: % Iron Saturation 7.5 % (15-50); Alanine Aminotransferase 40 U/L (7-40); Alkaline Phosphatase 122 U/L (46-116); Bilirubin, Total 0.2 mg/dL (0.2-1.0); Chloride 109 mmol/L (98-107)
[2024-10-22 12:52] LABS: Triglycerides 71 mg/dL (< 150)
[2024-10-22 12:53] LABS: CRP High Sensitivity 0.03 mg/dL (<1.0); LDL Cholesterol 52 mg/dL (< 100)
[2024-10-22 12:54] LABS: Cholesterol 134 mg/dL (< 200); Free T4 (Free Thyroxine) 0.96 ng/dL (0.89-1.76); Thyroid Stimulating Hormone 1.51 uIU/mL (0.55-4.78)
[2024-10-22 12:56] LABS: Hypochromia Moderate
[2024-10-22 12:57] LABS: Anisocytosis Slight
[2024-10-22 12:58] LABS: Platelet Estimate Adequate
[2024-10-22 13:08] LABS: HDL Cholesterol 71 mg/dL (40-59)
[2024-10-26 13:06] LABS: Vitamin D 25-Hydroxy 39 ng/mL (.); Vitamin D-2 25-Hydroxy <1.0 ng/mL (.); Vitamin D-3 25-Hydroxy 39 ng/mL (.)
== END | disposition home or self-care (01) ==
LOC: LAB 11:23
PROVIDERS: ATTEND Internal Medicine
DX: M06.9 Rheumatoid arthritis, unspecified (principal); D64.9 Anemia, unspecified; I10 Essential (primary) hypertension; Z86.39 Personal history of other endocrine, nutritional and metabolic disease; Z79.899 Other long term (current) drug therapy
CPT/HCPCS: 36415; 80053; 80061; 81001; 82306; 82607; 83036; 83540; 83550; 83615; 84439; 84443; 85025; 85610; 85652; 86141